=== PATIENT | female | born 1940 | race Caucasian/White ===

== ENCOUNTER 2020-08-31 06:34 | Day surgery (SDC) | payer MEDICARE, OTHER ==
[~2020-08-31 06:34] MED LIST: ACETAMINOPHEN500 M1 PO; ALLERGY RELIEF10 M1 PO; AMLODIPINE BESY10 MG PO; ASPIRIN EC81 MG PO; ATENOLOL100 MG PO; CENTRUM CHEWAB1 EAC2 PO; OSTEO BI-FLEX1 EAC1 PO; PROTONIX 40MG T40 MG PO; SIMVASTATIN20 MG PO; SINGULAIR10 MG PO; TRAZODONE HCL50 MG PO; VITAMIN D310 MC3 PO
[2020-08-31] MEDS ORDERED: NORCO 5-325 TA1 EACH PO (07:31)
[2020-09-01 06:05] LABS: BASOPHIL 0.3 % (0-2); EOSINOPHIL 1.1 % (0-7); HCT 26.2 % (37.0-47.0); HGB 8.6 g/dl (12.5-16.0); LYMPHOCYTE 9.3 % (15-48); MCH 30.4 pg (25.0-31.0); MCHC 32.8 g/dL (32.0-36.0); MCV 92.6 fL (78.0-100.0); MONOCYTE 8.6 % (0-12); MPV 9.2 fL (6.0-9.5); NEUTROPHIL 79.9 % (41-80); NRBC 0; PLT 269 K/uL (150-400); RBC 2.83 M/uL (4.20-5.40); RDW 13.5 % (11.5-14.0); WBC 11.9 K/uL (4.0-10.5)
[2020-09-01 06:34] LABS: BUN/CREAT RATIO (CALC) 14.3 RATIO; CREATININE 0.63 mg/dL (0.51-0.95); POTASSIUM 3.4 mmol/L (3.5-5.1)
[2020-09-01] MEDS ORDERED: XARELTO10 MG PO (08:19)
[2020-09-01] MEDS ORDERED: FEOSOL325 MG PO (08:19)
[2020-09-01] MEDS ORDERED: ULTRA-LIGHT RO1 EACH XX (08:47)
[2020-09-01] MEDS ORDERED: ZOFRAN4 M1 PO (10:43)
== END 2020-09-01 14:56 | disposition home health service (06) ==
LOC: FAS 06:34 → FMS 11:02
PROVIDERS: Legal Medicine
DX: M17.11 Unilateral primary osteoarthritis, right knee (principal); M21.161 Varus deformity, not elsewhere classified, right knee; K21.9 Gastro-esophageal reflux disease without esophagitis; I10 Essential (primary) hypertension; E78.5 Hyperlipidemia, unspecified; R33.9 Retention of urine, unspecified; Z79.899 Other long term (current) drug therapy; Z90.710 Acquired absence of both cervix and uterus; Z98.890 Other specified postprocedural states; Z20.822 Contact with and (suspected) exposure to COVID-19; R09.02 Hypoxemia
CPT/HCPCS: 36415; 73560; 80048; 85025; 86850; 86900; 86901; 94010; 94762; 97110; 97116; 97162; 97166; 97530-GP; 97535; C1713; C1776; J0171; J0697; J1885; J2250; J2270; J2405; J2704; J2795; J3010; J7120